=== PATIENT | male | born 1980 | race Caucasian/White ===

== ENCOUNTER 2019-02-21 15:54 | Emergency (ER) | payer BC ==
[~2019-02-21] VITALS: Ht 182.9 cm; Wt 117.9 kg
[2019-02-21] MEDS ORDERED: Percocet 5-3251 EACH PO (16:51)
== END 2019-02-21 16:50 | disposition home or self-care (01) ==
LOC: ER 15:54
DX: S42.022A Displaced fracture of shaft of left clavicle, initial encounter for closed fracture (principal); S22.32XA Fracture of one rib, left side, initial encounter for closed fracture; V86.96XA Unspecified occupant of dirt bike or motor/cross bike injured in nontraffic accident, initial encounter
CPT/HCPCS: 71045; 73030; 99283-25

== ENCOUNTER 2024-02-19 20:17 | Emergency (ER) | payer BC ==
[~2024-02-19] VITALS: Ht 182.9 cm; Wt 117.9 kg
[~2024-02-19 20:17] MED LIST: Percocet 5-3251 EACH PO
[2024-02-19 20:23] VITALS: BP 148/108
[2024-02-19] MEDS ORDERED: Fluorescein Sod 1MG Opth Strips RIGHTEYE ONE (20:25)
[2024-02-19] MEDS ORDERED: Tetracaine HCl/Pf 0.5% Opth Soln 4 ml RIGHTEYE SCH (20:25)
[2024-02-19] MEDS ORDERED: Erythromycin 0.5% Opth Oint 1 gm RIGHTEYE ONE (21:15)
== END 2024-02-19 21:27 | disposition home or self-care (01) ==
LOC: ER 20:17
DX: S05.01XA Injury of conjunctiva and corneal abrasion without foreign body, right eye, initial encounter (principal); W22.8XXA Striking against or struck by other objects, initial encounter
CPT/HCPCS: 99283; A9270